=== PATIENT | male | born 1955 | race Caucasian/White ===

== ENCOUNTER 2017-05-02 08:16 | Emergency (ER) | payer OTHER ==
[~2017-05-02] VITALS: Ht 157.5 cm; Wt 186.0 kg
[~2017-05-02 08:16] MED LIST: BACTRIM,SEPT1 TABLET PO; BUPROPION HCL150 M2 PO; CLINDAMYCIN HC300 MG PO; LEVOFLOXACIN750 MG PO; LORATADINE10 M2 PO; NORCO 5/3251 TABLET PO; NORVASC5 MG PO; TRAZODONE HCL50 MG PO; VICODIN 5-3001 EACH PO; VOLTAREN75 MG PO; WELLBUTRIN SR150 MG PO; ZESTORETIC 20-1 EAC1 PO
[2017-05-02 08:58] LABS: EOSINOPHIL (%) 3.5 % (0-5); EOSINOPHIL COUNT 0.3 K/uL (0-0.3); HEMATOCRIT 48.3 % (38.0-50.0); IMMATURE GRANULOCYTE (%) 0.4 % (0.0-0.7); INSTRUMENT ABS NEUTROPHIL CT 4.7 K/uL; LYMPHOCYTE COUNT 1.8 K/uL (1.0-2.8); MCHC 34.2 G/DL (30.0-36.0); MCV 87.8 FL (86-99); MEAN PLAT.VOLUME 10.1 uM^3 (9.0-12.4); MONOCYTE (%) 5.7 % (3-12); MONOCYTE COUNT 0.4 K/uL (0-0.8); NEUTROPHIL (%) 65.7 % (45-76); NEUTROPHIL COUNT 4.7 K/uL (1.8-6.4); PLATELET COUNT 155 K/uL (156-360); RBC DIS.WIDTH-SD 42.1 % (39-53); WHITE BLOOD COUNT 7.2 K/uL (4.1-10.2)
[2017-05-02 09:05] LABS: INTER. NORMALIZED RATIO 1.1; PROTHROMBIN TIME 12.3 SEC (10.2-12.9)
[2017-05-02 09:05] LABS: COLOR RED ((YELLOW)); GLUCOSE (STRIP) NEGATIVE; LEUKOCYTES NEGATIVE; NITRITE NEGATIVE; PROTEIN (STRIP) 100
[2017-05-02 09:06] LABS: ADD MIUA? YES; BILIRUBIN SMALL; BLOOD LARGE; KETONES NEGATIVE; UROBILINOGEN 0.2 MG/DL (0.2-1.0)
[2017-05-02 09:08] LABS: RED BLOOD CELLS TNTC /HPF (0-5)
[2017-05-02 09:09] LABS: CHLORIDE 105 mEq/L (99-109); POTASSIUM 3.6 mEq/L (3.7-5.4); SODIUM 136 mEq/L (136-147)
[2017-05-02 09:10] LABS: GLUCOSE 105 mg/dL (70-99)
[2017-05-02 09:12] LABS: ANION GAP 9 MEQ/L (2-14)
[2017-05-02 09:14] LABS: GFR ESTIMATE (CALCULATED) > 59 mL/min/
[2017-05-02 09:15] LABS: UREA NITROGEN (BUN) 16 mg/dL (9-23)
[2017-05-02] MEDS ORDERED: MACROBID100 MG PO (14:51)
[2017-05-02 15:21] VITALS: BP 149/76
[2017-05-02] MEDS ORDERED: BACTROBAN CREAM15 GM TP (15:32)
== END 2017-05-02 16:05 | disposition home or self-care (01) ==
LOC: EME → EDBD 08:16 → EME 08:16
PROVIDERS: Emergency Medicine
DX: R31.9 Hematuria, unspecified (principal); I10 Essential (primary) hypertension; K21.9 Gastro-esophageal reflux disease without esophagitis; G89.29 Other chronic pain; M25.551 Pain in right hip; M25.552 Pain in left hip; E66.01 Morbid (severe) obesity due to excess calories; Z68.45 Body mass index [BMI] 70 or greater, adult
CPT/HCPCS: 74177; 80048; 81003; 85025; 85610; 99281; 99285; J1885; J2060; J2270

== ENCOUNTER 2017-05-04 08:22 | Emergency (ER) | payer OTHER ==
[~2017-05-04] VITALS: Ht 170.2 cm; Wt 167.0 kg
[~2017-05-04 08:22] MED LIST changes: +BACTROBAN CREAM15 GM TP; +MACROBID100 MG PO
[2017-05-04 08:56] LABS: HEMATOCRIT 45.6 % (38.0-50.0); MCH 30.7 PG (29.0-34.0); MCHC 35.1 G/DL (30.0-36.0); MCV 87.5 FL (86-99); MEAN PLAT.VOLUME 10.4 uM^3 (9.0-12.4); PLATELET COUNT 145 K/uL (156-360); RBC DIS.WIDTH-CV 13.1 % (11.8-14.6); RED BLOOD COUNT 5.21 M/uL (4.00-5.50); WHITE BLOOD COUNT 6.3 K/uL (4.1-10.2)
[2017-05-04 09:06] LABS: CHLORIDE 107 mEq/L (99-109); POTASSIUM 3.7 mEq/L (3.7-5.4); SODIUM 140 mEq/L (136-147)
[2017-05-04 09:08] LABS: GLUCOSE 109 mg/dL (70-99)
[2017-05-04 09:09] LABS: ANION GAP 11 MEQ/L (2-14)
[2017-05-04 09:10] LABS: TOTAL BILIRUBIN 1.7 mg/dL (0.0-1.0)
[2017-05-04 09:11] LABS: ALKALINE PHOSPHATASE 73 IU/L (3-129)
[2017-05-04 09:12] LABS: GFR ESTIMATE (CALCULATED) > 59 mL/min/
[2017-05-04 09:13] LABS: UREA NITROGEN (BUN) 12 mg/dL (9-23)
[2017-05-04 09:14] LABS: ADD MIUA? YES; BILIRUBIN NEGATIVE; BLOOD LARGE; COLOR AMBER ((YELLOW)); GLUCOSE (STRIP) NEGATIVE; KETONES NEGATIVE; LEUKOCYTES NEGATIVE; NITRITE NEGATIVE; PROTEIN (STRIP) 30; SPECIFIC GRAVITY 1.016 (1.000-1.030); UROBILINOGEN 0.2 MG/DL (0.2-1.0)
[2017-05-04 09:44] LABS: EPITHELIAL CELLS RARE /HPF; MUCUS NONE SEEN /LPF; RED BLOOD CELLS TNTC /HPF (0-5); WHITE BLOOD CELLS 0-5 /HPF (0-5)
[2017-05-04 09:45] LABS: BACTERIA RARE /HPF; UCUL ADDED? YES
[2017-05-04 12:29] VITALS: BP 155/74
== END 2017-05-04 12:35 | disposition home or self-care (01) ==
LOC: EME 08:22
PROVIDERS: Nurse Practitioner Family
DX: N30.91 Cystitis, unspecified with hematuria (principal); I10 Essential (primary) hypertension; E66.9 Obesity, unspecified; Z87.440 Personal history of urinary (tract) infections
CPT/HCPCS: 80053; 81003; 85027; 87086; 99281; 99284; J2270; J2405; J7030